=== PATIENT | female | born 1985 | race African-American/Black ===

== ENCOUNTER 2016-11-06 23:04 | Emergency (ER) | payer MEDICAID ==
[2016-11-06 23:20] VITALS: BMI 31.6
--- NOTE | 2016-11-07 00:51 | EDPRACDOC ---
- General Information Chief Complaint: Flu-Like Symptoms Stated Complaint: FLU LIKE SYMPTOMS (22 WKS PREG) Time Seen by Provider: 11/07/16 00:32 Information Source: Patient Home Medications: Home Medications Acetaminophen [Tylenol Extra Strength] 500 mg PO Q6 #14 tablet 11/07/16 Amoxicillin Trihydrate [Amoxicillin] 500 mg PO TID #30 tab 11/07/16 Loratadine [Claritin] 10 mg PO DAILY #30 tab 11/07/16 Allergies/Adverse Reactions: Allergies Allergy/AdvReac Type Severity Reaction Status Date / Time No Known Allergies Allergy Verified 11/06/16 23:20 - History of Present Illness Onset: 1 DAY HPI: PT PRESENTS TODAY WITH 1 DAY OF LOW GRADE FEVER, COUGH/CONGESTION AND POST- TUSSIVE VOMITING. PT IS 23 WEEKS WITH GOOD CARE. DENIES CP , SHOB, ABD PAIN, DIARRHEA, DYSURIA, VAGINAL BLEEDING/DISCHARGE. NO APPARENT DISTRESS. Current Symptoms: Reports: Cough, Fever, Nasal Symptoms, Sore Throat, Vomiting Shortness of Breath: None Cough: Reports: Non-productive Rhinorrhea: Reports: Clear Ear Symptoms: Reports: None Fever Severity/Quality: Reports: low grade Oral Intake: Normal Urinary Output: Normal Relevant History of: None Associated Signs & Symptoms:: Reports: Cough, Fever, Nasal Symptoms, Vomiting ED Past Medical History - History Reviewed Yes Nurses notes reviewed and agree except as marked - Patient Medical History Cardiac History: Reports: Hypertension (NON-COMPLIANT) Psychological History: Denies: Depression Surgical History: Denies: Hysterectomy - Social Medical History Smoking Status: Heavy tobacco smoker (5 or more cigarettes/day or daily pipe/ cigar) EDM Review of Systems - Review of Systems ROS Negative Except as Marked: Yes All systems reviewed and were negative except as marked Constitutional: Fever, Fatigue Eyes: No Symptoms Reported Ears: No Symptoms Reported Throat: Pain Nose: Congestion Respiratory: Cough Cardiovascular: No Symptoms Reported Gastrointestinal: Vomiting Genitourinary: Neurological: No Symptoms Reported Musculoskeletal: No Symptoms Reported Integumentary: No Symptoms Reported - Physical Exam Constitutional: Alert (Awake), No apparent distress Oriented to: Time, Person, Place Last recorded Vital Signs: Last Vital Signs Temp 98.0 F 11/07/16 00:22 Pulse 101 11/07/16 00:22 Resp 21 11/07/16 00:22 BP 143/87 11/07/16 00:22 Pulse Ox 96 11/07/16 00:22 Oxygen Pulse Oxygen Saturation 96 O2 Device Room Air Oxygen Flow Rate Fraction of Inspired Oxygen ( FIO2) - HEENT Head: Normal Eye Exam: Normal Oropharynx: Red Tympanic Membrane: Normal ENT EAC: Normal Nose: Congestion Neck: Normal, Denies Pain, Midline - Respiratory/Cardiovascular Respiratory: Normal - CTA Cardiovascular: Normal - GI Palpation: Normal Tenderness: Non tender - Musculoskeletal Back: Normal Extremities: Normal - Integumentary Skin: Normal Lymphatics: Normal - Neurologic Cerebellar: Normal Mood Description: Normal Thought: Coherent Perception: Normal Decision Time to Discharge: 00:52 - Departure Disposition: Home Condition: Good Final Diagnosis: Acute upper respiratory infection Instructions: Upper Respiratory Infection (ED) Education/Counseling Given To: Patient Education/Counseling Given Regarding: Diagnosis, Treatment, Follow Up Referrals: None,No Provider [Primary Care Provider] - One Week Prescriptions: Acetaminophen [Tylenol Extra Strength] 500 mg PO Q6 #14 tablet Amoxicillin Trihydrate [Amoxicillin] 500 mg PO TID #30 tab Loratadine [Claritin] 10 mg PO DAILY #30 tab Additional Instructions: REST AND PLENTY OF FLUIDS. FOLLOW UP WITH PCP IN 2-3 DAYS IF NEEDED.
[2016-11-07 01:15] VITALS: BP 139/87; PULSE 99; TEMP 98.4
== END 2016-11-07 01:26 | disposition home or self-care (01) ==
LOC: ED 23:04
DX: O98.812 Other maternal infectious and parasitic diseases complicating pregnancy, second trimester (principal); J06.9 Acute upper respiratory infection, unspecified; Z3A.22 22 weeks gestation of pregnancy
CPT/HCPCS: 99283